=== PATIENT | female | born 1965 | race Caucasian/White ===

== ENCOUNTER 2019-11-13 13:48 | Emergency (ER) | payer OTHER ==
[~2019-11-13] VITALS: Ht 157.5 cm; Wt 68.0 kg
[2019-11-13] MEDS ORDERED: NS IV 1000 ML 1,000 ML IV SCH (14:30)
[2019-11-13] MEDS ORDERED: IBUPROFEN 800 MG (MOTRIN) TAB PO ONE (14:30)
[2019-11-13 14:32] LABS: BASOPHILS % (AUTO) 0 % (0-10); EOSINOPHILS % (AUTO) 0 % (0-10); HEMATOCRIT 39 % (35-52); HEMOGLOBIN 13.4 G/DL (11.5-16.0); LYMPHOCYTES # (AUTO) 1.8 X 10^3 (1.0-4.0); LYMPHOCYTES % (AUTO) 12 % (12-44); MEAN CORPUSCULAR HEMOGLOBIN 30 PG (25-34); MEAN CORPUSCULAR HGB CONC 35 G/DL (32-36); MEAN CORPUSCULAR VOLUME 86 FL (80-99); MEAN PLATELET VOLUME 10.9 FL (7.4-10.4); MONOCYTES # (AUTO) 1.1 X 10^3 (0.0-1.0); MONOCYTES % (AUTO) 8 % (0-12); NEUTROPHILS # (AUTO) 11.7 X 10^3 (1.8-7.8); NEUTROPHILS % (AUTO) 80 % (42-75); PLATELET COUNT 247 10^3/uL (130-400); RED CELL DISTRIBUTION WIDTH 14.3 % (10.0-14.5); WHITE BLOOD COUNT 14.7 10^3/uL (4.3-11.0)
--- NOTE | 2019-11-13 14:39 | ED Abdominal Pain ---
General Chief Complaint: Abdominal/GI Problems Stated Complaint: FEVER;L SIDE PAIN Nursing Triage Note: PT AMB TO TRIAGE WITH COMPLAINT OF LEFT SIDE ABD PAIN THAT RADIATES TO HER BACK. STATES DOES HAVE DIFFICULTY URINATING AND BURNING. STATES ALSO HAS HAD COUGH, FEVER, AND SOA. Sepsis Screen: No Definite Risk Source of Information: Patient Exam Limitations: No Limitations History of Present Illness Date Seen by Provider: Nov 13, 2019 Time Seen by Provider: 14:30 Initial Comments 54-year-old female who presents to the emergency room with complaints of left lower flank pain that radiates through to her back, painful urination with turning sensation. She also reports mild dry cough and fevers at home. Denies nausea, vomiting, diarrhea at this time but reports that she did have dry heaving this morning. Denies any recent travel. Timing/Duration: 2-3 Days Severity/Quality: Sharp, Stabbing Location: LLQ, Flank Allergies and Home Medications Allergies Coded Allergies: No Known Drug Allergies (Unverified , 11/13/19) Home Medications Cefdinir 300 Mg Capsule, 300 MG PO BID Prescribed by: ATLON SULTANA on 11/13/19 1616 Ondansetron 4 Mg Tab.rapdis, 4 MG PO Q4H PRN for NAUSEA/VOMITING Prescribed by: ALTON SULTANA on 11/13/19 1616 Patient Home Medication List Home Medication List Reviewed: Yes Review of Systems Review of Systems Constitutional: see HPI, chills, fever Respiratory: See HPI, Cough Gastrointestinal: See HPI, Abdominal Pain Genitourinary: See HPI, Burning, Pain All Other Systems Reviewed Negative Unless Noted: Yes Past Xydluhk-Oskxkp-Arioaz Hx Past Med/Social Hx: Reviewed Nursing Past Med/Soc Hx Patient Social History Alcohol Use: Denies Use Recreational Drug Use: No Smoking Status: Current Everyday Smoker Type Used: Cigarettes Recent Foreign Travel: No Contact w/Someone Who Travel: No Recent Infectious Disease Expo: No Recent Hopitalizations: No Immunizations Up To Date Tetanus Booster (TDap): Unknown PED Vaccines UTD: Yes Seasonal Allergies Seasonal Allergies: No Past Medical History Surgeries: Yes Hysterectomy Respiratory: No Cardiac: Yes Hypertension Neurological: No Genitourinary: No Gastrointestinal: No Musculoskeletal: No Endocrine: No HEENT: No Cancer: No Psychosocial: No Integumentary: No Blood Disorders: No Family Medical History Reviewed Nursing Family Hx Physical Exam Vital Signs Vital Signs - First Documented 11/13/19 13:53 Temp 39.4 Pulse 119 Resp 20 B/P (MAP) 139/74 (95) Pulse Ox 94 O2 Delivery Room Air Capillary Refill : Less Than 3 Seconds Height/Weight/BMI Height: '" Weight: lbs. oz. kg; 27.00 BMI Method: General Appearance: WD/WN, no apparent distress Respiratory: chest non-tender, lungs clear, normal breath sounds, no respiratory distress, no accessory muscle use Cardiovascular: normal peripheral pulses, regular rate, rhythm, no edema, no gallop, no JVD, no murmur Gastrointestinal: normal bowel sounds, non tender, soft, no organomegaly, no pulsatile mass Extremities: normal capillary refill Back: normal inspection, no CVA tenderness Neurologic/Psychiatric: alert, normal mood/affect, oriented x 3 Skin: normal color, warm/dry Focused Exam Lactate Level 11/13/19 15:21: Lactic Acid Level 0.88 Lactic Acid Level Laboratory Tests Test 11/13/19 15:21 Lactic Acid Level 0.88 MMOL/L (0.50-2.00) Progress/Results/Core Measures Results/Orders Lab Results Laboratory Tests Test 11/13/19 14:27 11/13/19 14:32 11/13/19 15:21 Range/Units White Blood Count 14.7 H 4.3-11.0 10^3/uL Red Blood Count 4.51 4.35-5.85 10^6/uL Hemoglobin 13.4 11.5-16.0 G/DL Hematocrit 39 35-52 % Mean Corpuscular Volume 86 80-99 FL Mean Corpuscular Hemoglobin 30 25-34 PG Mean Corpuscular Hemoglobin Concent 35 32-36 G/DL Red Cell Distribution Width 14.3 10.0-14.5 % Platelet Count 247 130-400 10^3/uL Mean Platelet Volume 10.9 H 7.4-10.4 FL Neutrophils (%) (Auto) 80 H 42-75 % Lymphocytes (%) (Auto) 12 12-44 % Monocytes (%) (Auto) 8 0-12 % Eosinophils (%) (Auto) 0 0-10 % Basophils (%) (Auto) 0 0-10 % Neutrophils # (Auto) 11.7 H 1.8-7.8 X 10^3 Lymphocytes # (Auto) 1.8 1.0-4.0 X 10^3 Monocytes # (Auto) 1.1 H 0.0-1.0 X 10^3 Eosinophils # (Auto) 0.0 0.0-0.3 10^3/uL Basophils # (Auto) 0.0 0.0-0.1 10^3/uL Neutrophils % (Manual) 84 % Lymphocytes % (Manual) 7 % Monocytes % (Manual) 9 % Blood Morphology Comment NORMAL Sodium Level 140 135-145 MMOL/L Potassium Level 3.3 L 3.6-5.0 MMOL/L Chloride Level 108 H 98-107 MMOL/L Carbon Dioxide Level 20 L 21-32 MMOL/L Anion Gap 12 5-14 MMOL/L Blood Urea Nitrogen 13 7-18 MG/DL Creatinine 0.77 0.60-1.30 MG/DL Estimat Glomerular Filtration Rate > 60 BUN/Creatinine Ratio 17 Glucose Level 117 H 70-105 MG/DL Calcium Level 9.1 8.5-10.1 MG/DL Corrected Calcium 8.9 8.5-10.1 MG/DL Total Bilirubin 0.5 0.1-1.0 MG/DL Aspartate Amino Transf (AST/SGOT) 24 5-34 U/L Alanine Aminotransferase (ALT/SGPT) 34 0-55 U/L Alkaline Phosphatase 73 40-136 U/L Total Protein 7.4 6.4-8.2 GM/DL Albumin 4.3 3.2-4.5 GM/DL Lipase 24 8-78 U/L Urine Color YELLOW Urine Clarity CLEAR Urine pH 6.0 5-9 Urine Specific [place] 1.020 1.016-1.022 Urine Protein 1+ H NEGATIVE Urine Glucose (UA) NEGATIVE NEGATIVE Urine Ketones NEGATIVE NEGATIVE Urine Nitrite POSITIVE H NEGATIVE Urine Bilirubin NEGATIVE NEGATIVE Urine Urobilinogen 0.2 < = 1.0 MG/DL Urine Leukocyte Esterase 2+ H NEGATIVE Urine RBC (Auto) 2+ H NEGATIVE Urine RBC RARE /HPF Urine WBC 50-100 H /HPF Urine Squamous Epithelial Cells 0-2 /HPF Urine Crystals NONE /LPF Urine Bacteria MODERATE H /HPF Urine Casts NONE /LPF Urine Mucus SMALL H /LPF Urine Culture Indicated YES Lactic Acid Level 0.88 0.50-2.00 MMOL/L Micro Results Microbiology 11/13/19 Influenza Types A,B Antigen ([facility]) - Final, Complete My Orders Orders - ALTON SULTANA Influenza A And B Antigens (11/13/19 14:16) Comprehensive Metabolic Panel (11/13/19 14:16) Lipase (11/13/19 14:16) Ua Culture If Indicated (11/13/19 14:16) Ed Iv/Invasive Line Start (11/13/19 14:16) Cbc With Automated Diff (11/13/19 14:16) Ns Iv 1000 Ml (Sodium Chloride 0.9%) (11/13/19 14:30) Ibuprofen Tablet (Motrin Tablet) (11/13/19 14:30) Manual Differential (11/13/19 14:27) Urine Culture (11/13/19 14:32) Chest 1 View, Ap/Pa Only (11/13/19 15:03) Blood Culture (11/13/19 15:15) Lactic Acid Analyzer (11/13/19 15:15) Fentanyl Injection (Sublimaze Injection (11/13/19 15:45) Ceftriaxone For Iv Use (Rocephin For I (11/13/19 15:45) Medications Given in ED Current Medications Medications Dose Ordered Sig/Maxi Route Start Time Stop Time Status Last Admin Dose Admin Ceftriaxone Sodium 1000 mg/ Sterile Water 10 ml @ 200 mls/hr ONCE ONCE IV 11/13/19 15:45 11/13/19 15:47 DC 11/13/19 15:51 200 MLS/HR Fentanyl Citrate 50 mcg ONCE ONCE IVP 11/13/19 15:45 11/13/19 15:46 DC 11/13/19 15:51 50 MCG Ibuprofen 800 mg ONCE ONCE PO 11/13/19 14:30 11/13/19 14:31 DC 11/13/19 14:33 800 MG Vital Signs/I&O 11/13/19 11/13/19 11/13/19 13:53 14:33 16:52 Temp 39.4 39.4 36.6 Pulse 119 78 Resp 20 18 B/P (MAP) 139/74 (95) 128/74 Pulse Ox 94 100 O2 Delivery Room Air Room Air Blood Pressure Mean: 95 Progress Progress Note : Time: 16:12 Progress Note I have seen and evaluated the patient. I've informed her of her laboratory and imaging studies. She agrees with plan of care, plans for discharge, return precautions were given. Departure Impression Primary Impression: Urinary tract infection Disposition: 01 HOME, SELF-CARE Condition: Stable/Unchanged Departure-Patient Inst. Decision time for Depature: 16:12 Referrals: [facility] [place] Patient Instructions: Urinary Tract Infection, Adult (DC) Add. Discharge Instructions: Take antibiotics as directed. Drink plenty of fluids to stay hydrated and to help flush out your kidneys and urinary tract. Call today to schedule follow-up appointment time with Dali [facility] at [facility]. Try to be seen later this week or early next week. Return back to the emergency room for worsening symptoms or concerns as needed. All discharge instructions reviewed with patient and/or family. Voiced understanding. Scripts Ondansetron (Ondansetron Odt) 4 Mg Tab.rapdis 4 MG PO Q4H PRN for NAUSEA/VOMITING for 7 Days, #30 TAB Prov: ALTON SULTANA 11/13/19 Cefdinir (Cefdinir) 300 Mg Capsule 300 MG PO BID for 7 Days, #14 CAP 0 Refills Prov: ALTON SULTANA 11/13/19 ALTON SULTANA Nov 13, 2019 14:39
[2019-11-13 14:41] LABS: BILIRUBIN,URINE NEGATIVE (NEGATIVE); CLARITY,URINE CLEAR; COLOR,URINE YELLOW; GLUCOSE, URINE (UA) NEGATIVE (NEGATIVE); KETONES,URINE NEGATIVE (NEGATIVE); LEUKOCYTE ESTERASE ,URINE 2+ (NEGATIVE); NITRITE,URINE POSITIVE (NEGATIVE); PROTEIN,URINE 1+ (NEGATIVE)
[2019-11-13 14:52] LABS: ALANINE AMINOTRANSFERASE 34 U/L (0-55); ALBUMIN 4.3 GM/DL (3.2-4.5); ALKALINE PHOSPHATASE 73 U/L (40-136); BILIRUBIN,TOTAL 0.5 MG/DL (0.1-1.0); BUN/CREATININE RATIO 17; CALCIUM 9.1 MG/DL (8.5-10.1); CARBON DIOXIDE 20 MMOL/L (21-32); CHLORIDE 108 MMOL/L (98-107); CREATININE SERUM 0.77 MG/DL (0.60-1.30); GFR ESTIMATED > 60; GLUCOSE 117 MG/DL (70-105); LIPASE 24 U/L (8-78); POTASSIUM 3.3 MMOL/L (3.6-5.0); SODIUM 140 MMOL/L (135-145); TOTAL PROTEIN 7.4 GM/DL (6.4-8.2)
[2019-11-13 15:01] LABS: BACTERIA,URINE MODERATE /HPF; RBC,URINE RARE /HPF; WBC,URINE 50-100 /HPF
[2019-11-13 15:02] LABS: SQUAMOUS EPITHELIAL CELL,UR 0-2 /HPF
[2019-11-13 15:17] LABS: LYMPHOCYTES % (MANUAL) 7 %; MONOCYTES % (MANUAL) 9 %; NEUTROPHILS % (MANUAL) 84 %
[2019-11-13 15:18] LABS: RBC MORPH NORMAL
--- NOTE | 2019-11-13 15:36 | Diagnostic Imaging Report ---
EXAMINATION: Portable erect AP chest at 03:21 p.m. INDICATION: Left-sided abdominal pain. FINDINGS: There are no prior studies available for comparison. This exam is less than optimal as the patient is still wearing a bra. The heart size is at the upper limits of normal. The central pulmonary vascularity is somewhat prominent and there may be a few Cameron B-lines in both lung bases. These findings do raise a question of mild pulmonary congestion. Whether these findings are chronic or acute is not certain. There is no evidence for pneumonia or for a pleural effusion. The mediastinum is not widened. The osseous structures are intact. IMPRESSION: 1. There is borderline cardiomegaly and there may be an element of mild pulmonary congestion present. Whether this is chronic or acute however is not certain. 2. There is no acute abnormality identified otherwise. Dictated by: Dictated on workstation # [id number]
[2019-11-13] MEDS ORDERED: cefTRIAXone FOR IV USE 1,000 MG in WATER (STERILE) FOR INJECTION 10 ML IV ONE (15:45)
[2019-11-13] MEDS ORDERED: fentaNYL INJECTION 100 MCG/2 ML AMP IVP ONE (15:45)
--- OUTSIDE RECORDS SUMMARY | 2019-11-13 16:04 | XMS REPORT | Continuity of Care Document ---
Author Organization Unknown Address Unknown Phone Unavailable Allergies There is no data. Medications There is no data. Problems There is no data. Procedures There is no data. Results Test Result Range AMYLASE - 06/18/19 14:44 AMYLASE 44 U/L 21-101 Encounters ACCT No. Visit Date/Time Discharge Status Pt. Type Provider Facility Loc./Unit Complaint [id number] 06/18/2019 13:00:00 06/18/2019 23:59: 59 [facility] Outpatient [facility] [id number] 06/18/2019 13:00:00 Document Registration [id number] 11/13/2019 13:50:[address] Emergency ALTON SULTANA Via [facility] ER FEVER;L SIDE PAIN
[2019-11-13] MEDS ORDERED: CEFD300C3 PO (16:16)
[2019-11-13] MEDS ORDERED: ONDA4TAB11 PO (16:16)
[2019-11-13 16:52] VITALS: BP 128/74
== END 2019-11-13 16:52 | disposition home or self-care (01) ==
LOC: ER 13:50
DX: N39.0 Urinary tract infection, site not specified (principal); F17.210 Nicotine dependence, cigarettes, uncomplicated
CPT/HCPCS: 36415; 71045; 80053; 81000; 83605; 83690; 85007; 85027; 87040; 87077; 87088; 87186; 87804

== ENCOUNTER 2023-05-04 05:51 | Outpatient (CLI) | payer OTHER ==
[~2023-05-04] VITALS: Ht 160 cm; Wt 62.7 kg
[~2023-05-04 05:51] MED LIST: CEFD300C3 PO; ONDA4TAB11 PO
[2023-05-04] MEDS ORDERED: CITA20TA12 PO (12:44)
[2023-05-04] MEDS ORDERED: PROP80TA3 PO (12:44)
[2023-05-04] MEDS ORDERED: BUDE10.2 IH (12:44)
[2023-05-04] MEDS ORDERED: PANT40SU PO (12:44)
[2023-05-04] MEDS ORDERED: ATOR40TA70 PO (12:44)
[2023-05-04] MEDS ORDERED: LOSA1TAB20 PO (12:44)
[2023-05-04] MEDS ORDERED: RT-ALBUINH INH (12:44)
== END 2023-05-04 14:02 | disposition home or self-care (01) ==
LOC: PREOP 05:51
PROVIDERS: ATTEND Surgery
DX: Z01.818 Encounter for other preprocedural examination (principal)

== ENCOUNTER 2023-05-11 09:14 | Day surgery (SDC) | payer OTHER ==
[~2023-05-11] VITALS: Ht 160 cm; Wt 62.7 kg
[2023-05-11] VITALS (14 sets, daily range): BP systolic 120–161; BP diastolic 70–90
[~2023-05-11 09:14] MED LIST changes: +ATOR40TA70 PO; +BUDE10.2 IH; +CITA20TA12 PO; +LOSA1TAB20 PO; +PANT40SU PO; +PROP80TA3 PO; +RT-ALBUINH INH
[2023-05-11] MEDS ORDERED: ceFAZolin INJECTION 2,000 MG in NS (IVPB) 50 ML 50 ML IV ONE (09:30)
[2023-05-11] MEDS: LACTATED RINGERS 1,000 ML 1,000 ML IV PRN ×2 (09:57→12:10)
--- NOTE | 2023-05-11 10:58 | Progress Note-Pre Operative ---
Pre-Operative Progress Note Date of Available H&P: Apr 28, 2023 Date H&P Reviewed: May 11, 2023 Time H&P Reviewed: 10:56 History & Physical: H&P Reviewed, Patient Examed, No changes noted Pre-Operative Diagnosis: Incarcerated Ventral/incisional hernia, possible umbilical hernia BEULAH BINGHAM DO May 11, 2023 10:58
[2023-05-11] MEDS ORDERED: LIDOCAINE/EPI 1%-1:200,000 (XYLOCAINE) 30 ML VIAL ONE (11:01)
[2023-05-11] MEDS ORDERED: dexAMETHasone INJ 10 MG/ML 1 ML VIAL ONE (11:21)
[2023-05-11] MEDS ORDERED: LIDOCAINE PF 2% 5 ML VIAL ONE (11:21)
[2023-05-11] MEDS ORDERED: proPOfol INJECTION 200 MG/20 ML VIAL IV ONE (11:21)
[2023-05-11] MEDS ORDERED: fentaNYL INJECTION 100 MCG/2 ML VIAL ONE (11:21)
[2023-05-11] MEDS ORDERED: ONDANSETRON INJECTION 4 MG/2 ML (SDV) ONE (11:21)
[2023-05-11] MEDS ORDERED: MIDAZOLAM INJ 2 MG/2 ML VIAL ONE (11:21)
[2023-05-11] MEDS ORDERED: GLYCOPYRROLATE INJ 0.2 MG/ML 2 ML VIAL ONE (11:21)
[2023-05-11] MEDS ORDERED: ROCURONIUM 50 MG/5 ML VIAL IV ONE (11:22)
[2023-05-11] MEDS: LIDOCAINE/EPI 1%-1:200,000 (XYLOCAINE) 30 ML VIAL INJ ONE (11:49)
[2023-05-11] MEDS ORDERED: SEVOFLURANE (ULTANE) 15 ML INHAL SOLN ONE (12:21)
[2023-05-11] MEDS ORDERED: HYDROmorphone INJECTION 2 MG/ML VIAL IV ONE (12:45)
[2023-05-11] MEDS ORDERED: morphine INJ 10 MG/ML 1ML (SYR OR VIAL) IVP ONE (12:45)
[2023-05-11] MEDS ORDERED: ONDANSETRON INJECTION 4 MG/2 ML (SDV) IVP PRN (12:45)
--- NOTE | 2023-05-11 12:59 | Progress Note-Post Operative ---
Post-Operative Progess Note Surgeon (s)/Sole Layer (s) Surgeon BEULAH BINGHAM DO Sole Layer: Isabel Pre-Operative Diagnosis Incarcerated Ventral/incisional hernia, possible umbilical hernia Post-Operative Diagnosis Same, found two hernias Procedure & Operative Findings Date of Procedure 05/11/23 Procedure Performed/Findings Laparoscopic Ventral and Umbilical herniarraphy, by bridge and measured appx 6cm with Robot COMPLICATIONS: None. INDICATIONS: The patient is a 57, female with an incarcerated ventral and umbilical hernia, which has continued to increase in size and cause discomfort. The patient was explained the risk and benefits of the procedure and wished to proceed with the procedure. Co nsent was signed on the chart. DESCRIPTION OF PROCEDURE: The patient was taken into the operating suite, prepped and draped in sterile fashion. Surgical pause was performed. Local anesthetic was infiltrated in left upper quadrant. A #11 blade scalpel was used to make a small skin incision. Cautery was used to dissect down to the fascia, which was then scored and divided the muscle, went through the posterior sheath and a balloon trocar was inserted into the abdomen. The abdomen was then insufflated. Saw what looked like an umbilical hernia and another ventral hernia; incarcerated. An 8 mm robotic trocar was placed approximately 10cm below the LUQ port and the another in the left lower quadrant. Then used bovie cautery on the scissors and the bipolar to take down the falciform and pull fat out of both hernias. Once all the fat was out, took a picture of the two defects and the bridge. The total length measured approximately 6cm total. An Echo Ventralight 4 x 6 inch mesh was then inserted in the abdomen grabbed through a stab incision with the Bia. The balloon was inflated on the mesh. A 5mm Versastep port was placed at about umbilicus height on the right side to assist in tacking. Circumferential tacks were placed with a SecureStrap Tacker. The balloon was then removed and inner crown was created as well. The mesh was tacked with pressure being decreased. The 12 mm fascial defect was then closed using 0 Vicryl. The abdomen was then desufflated,the trocars were removed. The skin was then closed using 4-0 Monocryl in a subcuticular fashion. The abdomen was washed and dried and Skin Affix was placed over the incisions. The patient tolerated procedure well without any complications. She was taken to recovery room in stable condition. Dr. Hall assisted on this case helping to make incisions, close incisions, identify anatomy and then to tack the mesh in place. Anesthesia Type GET Estimated Blood Loss Estimated blood loss (mL): scant Specimens/Packing Specimens Removed none BEULAH BINGHAM DO May 11, 2023 12:59
[2023-05-11] MEDS ORDERED: ACHD5005 PO (13:00)
--- NOTE | 2023-05-11 13:01 | Discharge Inst-Surgical ---
Discharge Inst-Surgical Depart Medication/Instructions New, Converted or Re-Newed RX: Transmitted to Pharmacy Patient Instructions Follow up Appt: Make appointment for 1 week. [phone] Instructions: No lifting greater than 20 pounds. No strenuous activity. May shower in 24 hours, no tub bath or soaking. Use incentive spirometer at home as directed. No Smoking Skin/Wound Care: May remove bandages in am. You need to leave the Dermabond on incision it will fall off on it's own. Symptoms to Report: Appetite Changes, Extremity Discoloration, Numbness/Tingling, Swelling Increased, Bleeding Excessive, Eyesight Changes, Pain Increased, Urine Color Change, Constipation(Persistent), Fever over 101 degree F, Pain/Pressure in chest, Urinating Difficulty, Cough Up/Vomit Blood, Heart Beat Irreg/Pounding, Pain/Pressure in jaw, Cramps in feet or legs, Lightheadedness, Pain/Pressure in shoulder, Diarrhea(Persistent), Memory Changes Suddenly, Questions/Concerns, Weight gain consecutive days, Dizziness/Fainting, Nausea/Vomiting, Shortness of Breath, Weight gain over 2 pounds If questions or concerns contact your physician Or seek help at emergency department. Activity Activity as Tolerated: Yes Activity Instructions: Avoid Stress to Incision Driving Instructions: No Driving/Refer to Dr. Mcmanus Discharge Diet: No Restrictions Diet After 24 Hours: Clear Liquid if Nauseous If Any Problems/Questions/Issu: Contact Your Physician, Go to Emergency Room Skin/Wound Care Infection Signs and Symptoms: Increased Redness, Foul Odor of Wound, Increased Drainage, Skin Itchy or Has a Rash, Increased Swelling, Temperature Above 101 F Wound Care Comment: heat to shoulder or neck tonight for pain Bathing Instructions: Shower Stitches/Daniela/Dermabond Dis: Raffaeleond BEULAH BINGHAM DO May 11, 2023 13:01
[2023-05-11] MEDS ORDERED: NEOSTIGMINE 1 MG/1ML 10 ML VIAL ONE (13:31)
--- NOTE | 2023-05-11 14:26 | Anesthesia-General Post-Op ---
General Patient Condition Mental Status/LOC: Same as Preop Cardiovascular: Satisfactory Nausea/Vomiting: Absent Respiratory: Satisfactory Pain: Controlled Complications: Absent Post Op Complications Complications None Follow Up Care/Instructions Patient Instructions None needed. Anesthesia/Patient Condition Patient Condition Patient is doing well, no complaints, stable vital signs, no apparent adverse anesthesia problems. No complications reported per nursing. SANG CARLOS DO May 11, 2023 14:26
[2023-05-11] MEDS ORDERED: HYDROcodone/ACETAMINOPHEN 5 MG/325 MG TABLET ONE (15:28)
[2023-05-11] MEDS ORDERED: HYDROcodone/ACETAMINOPHEN 5 MG/325 MG TABLET PO ONE (15:30)
== END 2023-05-11 16:35 | disposition home or self-care (01) ==
LOC: SDC 09:14
PROVIDERS: ATTEND Surgery
DX: K43.0 Incisional hernia with obstruction, without gangrene (principal); K42.0 Umbilical hernia with obstruction, without gangrene; F17.210 Nicotine dependence, cigarettes, uncomplicated
CPT/HCPCS: 49594; 87081; 94664; C1781